=== PATIENT | male | born 1990 | race Caucasian/White ===

== ENCOUNTER 2018-11-17 14:21 | Emergency (ER) | payer OTHER ==
[~2018-11-17] VITALS: Ht 182.9 cm; Wt 65.8 kg
[2018-11-17] MEDS ORDERED: ROBAXIN 750 MG750 M1 PO (14:39)
[2018-11-17 17:17] LABS: ABSOLUTE NEUTROPHILS 10.2 thou/uL (1.4-8.2); BASOPHILS 0.3 % (0.0-2.0); EOSINOPHILS 1.4 % (0.0-3.0); HEMATOCRIT 38.2 % (42.0-52.0); HEMOGLOBIN 13.9 gm/dL (14.0-18.0); LYMPHOCYTES 7.2 % (24.0-44.0); MCH 33.4 pg (26.0-34.0); MCHC 36.4 g/dL (28.0-37.0); MCV 91.6 fL (80.0-100.0); MONOCYTES 7.1 % (1.0-8.0); PLATELET COUNT 160 thou/uL (150-400); RBC 4.17 mil/uL (4.50-6.00); RDW 16.6 % (10.5-14.5); WBC 12.2 thou/uL (4.0-11.0)
[2018-11-17 17:34] LABS: CALCIUM 9.7 mg/dL (8.5-10.1); CREATININE 0.8 mg/dL (0.7-1.3); POTASSIUM 3.8 mmol/L (3.5-5.1)
[2018-11-17 17:40] LABS: ALBUMIN 5.3 g/dL (3.4-5.0); TOTAL BILIRUBIN 8.4 mg/dL (<0.1-1.0); TOTAL PROTEIN 8.3 g/dL (6.4-8.2)
[2018-11-17 18:35] VITALS: BP 113/62
[2018-11-17] MEDS ORDERED: NORCO 5-325 TA1 EACH PO (18:37)
== END 2018-11-17 18:50 | disposition home or self-care (01) ==
LOC: ER 14:21
PROVIDERS: Emergency Medicine
DX: R68.84 Jaw pain (principal); J45.909 Unspecified asthma, uncomplicated; Z88.1 Allergy status to other antibiotic agents; Z88.8 Allergy status to other drugs, medicaments and biological substances